=== PATIENT | female | born 1950 | race Caucasian/White ===

== ENCOUNTER 2017-01-01 12:44 | Emergency (ER) | payer MEDICARE, OTHER ==
[~2017-01-01] VITALS: Ht 157.5 cm; Wt 51.3 kg
[~2017-01-01 12:44] MED LIST: B-122500 MCG SL; NORCO 5-325 TA1 EACH PO; ZOLOFT100 MG PO
[2017-01-01] MEDS ORDERED: LOPERAMIDE2 MG PO (13:03)
[2017-01-01] MEDS ORDERED: LORAZEPAM1 MG PO (13:03)
[2017-05-06] MEDS ORDERED: NORCO 5-325 TA1 EACH PO (13:59)
== END 2017-01-01 15:12 | disposition home or self-care (01) ==
LOC: ED 12:44
DX: F41.9 Anxiety disorder, unspecified (principal); Z74.1 Need for assistance with personal care; C19 Malignant neoplasm of rectosigmoid junction; F17.200 Nicotine dependence, unspecified, uncomplicated; Z79.899 Other long term (current) drug therapy
CPT/HCPCS: 74020; 85025; 99283

== ENCOUNTER 2017-01-26 09:18 | Inpatient (IN) | payer MEDICARE, OTHER ==
[~2017-01-26] VITALS: Ht 157.5 cm; Wt 47.2 kg
--- NOTE | ~2017-01-26 | DS ---
[facility] [address], [place] [address] Draft DATE OF DISCHARGE: 01/29/17 ADMISSION DIAGNOSES Nausea and vomiting. Possible small bowel obstruction, status post history of subtotal colectomy, and history of anorectal carcinoma. DISCHARGE DIAGNOSES Nausea and vomiting. Possible small bowel obstruction, status post history of subtotal colectomy, and history of anorectal carcinoma. DISCHARGE MEDICATIONS She is to take all of the medicines she took before, which I am told is antidepressant plus the [id number] stuff that she normally takes if she needs it. OPERATIONS: None. H and P was dictated by Dr. Putnam. Briefly, this is a lady who is well known to him and came in with this problem. He put her in and basically took care of her with medical management and with medical management she seems to have resolved this problem, i t could have just been a gastroenteritis type deal, but it also could have been partial bowel obstruction due to adhesions. Anyhow, she got better, he had her on TPN in case she did not get better and started her on diet. She is tolerating the diet, has exellent ileostomy output. She is afebrile and basically was managed medically by Dr. Putnam. He called me last evening and asked me to discharge her this morning if she continues to do okay and she seems to be doing fine. I sat down, had a talk with her about chewing her food well, possibly staying on soups and mush for a couple of weeks. See Dr. Putnam in 7-10 days for follow-up , should she have any problems that sounds like the same thing that got her in here, she should go right back to the emergency room. All in all, I think she is doing okay. She still has issues with her anorectum, that will have to be managed as her physician sees fit. We wish everybody luck with the care of this nice lady who has had some many major medical issues recently. MD DORA Felix/Brant PATIENT NAME: OLAMIDE DUFFY DISCHARGE SUMMARY DATE OF : 50 PHYSICIAN: PATRICIA DELAROSA MD REPORT #: [id number] REPORT IS CONFIDENTIAL AND NOT TO BE RELEASED WITHOUT AUTHORIZATION [address] [place] [address] Draft /[id number] cc: MD Ascencion Dangelo, PATIENT NAME: OLAMIDE DUFFY DISCHARGE SUMMARY DATE OF : 50 PHYSICIAN: PATRICIA DELAROSA MD REPORT #: [id number] REPORT IS CONFIDENTIAL AND NOT TO BE RELEASED WITHOUT AUTHORIZATION
[~2017-01-26 09:18] MED LIST changes: +LOPERAMIDE2 MG PO; +LORAZEPAM1 MG PO
--- NOTE | 2017-01-26 13:45 | NUR ---
PATIENT TO MED-SURG FLOOR VIA STRETCHER. TRANSFER TO HOSPITAL BED BY SELF. PATIENT IS WEAK DUE TO NAUSEA AND VOMITING FOR SEVERAL DAYS. PATIENT ORIENTE TO ROOM. ADMISSION ASSESSMENT DONE. LUNGS CLEAR, HYPOACTIVE BOWEL TONES. SKIN DRY AND PALE, POOR TURGOR. DRY MOUNTH. ILEOSTOMY ON THE RIGHT MID QUADRANT AND COLOSTOMY ON THE LEFT MID QUADRANT. PATIENT HAS A PORT A CATH ON THE RIGHT CHEST AND PERIPHERAL IV ON THE RIGHT FORARM, THAT FLUSHED WELL.
--- NOTE | 2017-01-26 13:55 | NUR ---
DR AGUILERA IN TO ROOM TO SEE AND EVALUATE PATIENT. DISCUSSING PLAN OF CARE.
--- NOTE | 2017-01-26 14:19 | NUR ---
PORT A CATH ACCESSED PER DR AGUILERA ORDER. THIS RN ACCESSED PORT WITH THE ASSISTANCE OF CABLE SPLICER APPRENTICE YURY. GOOD BLOOD RETURN AND PATIENT TOLERATED PROCEDURE WELL.
--- NOTE | 2017-01-26 15:55 | NUR ---
MED REC COMPLETE WITH PATIENT REFILL HISTORY.
--- NOTE | 2017-01-26 17:09 | NUR ---
PATIENT REPORTED PAIN, PATIENT WAS MEDICATED WITH DILAUDID BY BRITTANY PRICE. PATIENT RESTING IN BED AT THIS TIME.
--- NOTE | 2017-01-26 18:13 | NUR ---
PATIENT ADMITTED FROM ED THIS PM. REPORTED ABD PAIN. PATIENT WAS MEDICATED ONCE WITH DILAUDID FOR THIS SHIFT. PATIENT IS NPO AT THIS TIME. TPN @ 83.7ML/HR AND LIPIDS @ 20.3ML/HR. PORT ON THE RIGHT UPPER CHEST, ACCESSED, GOOD BLOOD RETURN. PATIENT HAD RIGHT ILEOSTOMY AND A LEFT COLOSTOMY. STOMA IN BOTH OSTOMY PINK, MOIST AND SKIN INTACT. PATIENT HAD GENERALIZED WEAKNESS. BLOOD SUGAR CHECK Q 12. VOID Q/S.
--- NOTE | 2017-01-26 18:28 | NUR ---
PATIENT RESTING IN BED WATCHING TV. CALL BUTTON IN REACH. NO OTHER NEEDS AT THIS TIME.
--- NOTE | 2017-01-26 20:00 | NUR ---
RECEIVED REPORT AT 1900. FOUND PT IN BED COMPLAINING OF PAIN AND NAUSEA. DAY RN GAVE PRN PAIN MEDS AND ZORFRAN. I ASSISTED PT TO BATHROOM. PT IS BACK IN BED AT THIS TIME.
--- NOTE | 2017-01-26 22:05 | NUR ---
ALL LOBES ARE CLEAR. LUQ HAS BOWEL TONES. ILLEOSTOMY BAG HAS GAS IN IT. PT AT TIMES IS BELCHING. V/S ARE WDL. PT DENIES N/V.
--- NOTE | 2017-01-27 00:37 | NUR ---
ASSISTED PT TO BATHROOM. THIS IS THE SECOND TIME PT ONLY HAD 50ML URINE OUT. WILL CONTINUE TO MONITOR AND IF THIS CONTINUES I WILL LET DAY SHIFT KNOW TO GET A URINE SAMPLE. PT IS BACK IN BED RESTING. PAIN NOW IS A 3
--- NOTE | 2017-01-27 03:17 | NUR ---
ASSISTED PT TO BATHROOM. PAIN IS WELL CONTROLLED. PT DENIES PAIN AND N/V. URINE OUTPUT IS MUCH BETTER.
--- NOTE | 2017-01-27 05:21 | NUR ---
PT OVERALL HAD AN UNEVENTFUL NIGHT. LIPIDS ARE FINISHED. TPN IS STILL RUNNING. V/S ARE WDL SO FAR, RUQ HAS BOWEL TONES, ILLEOSTOMY PUTS OUT GREEN STOOL AND GAS. PAIN IS WELL CONTROLLED WITH PRN PAIN MEDS. PT HAS DENIED N/V ALL SHIFT. PT SEEMS OVERALL STRONGER.
--- NOTE | 2017-01-27 07:15 | NUR ---
BEDSIDE REPORT RECEIVED FROM BRITTANY SMITH. PT SLEEPING, SPO2 99%, HR 74. TPN INFUSING AT 83.7 ML/HR. WILL CONTINUE TO MONITOR.
--- NOTE | 2017-01-27 07:56 | NUR ---
DR. AGUILERA IN PT ROOM, ADVANCED PT TO FULL LIQUID DIET. PT HAD 225 GREEN STOOL OUT OF ILEOSTOMY BAG. MORNING ASSESSMENT COMPLETE, PT LUNGS CLEAR WITH OCCASIONAL EXPIRATORY WHEEZE IN ALL QUADRANTS. PT HAS ACTIVE BOWEL TONES X4. NO NAUSEA OR PAIN REPORTED AT THIS TIME. PT BACK IN BED, BREAKFAST ORDERED, CALL LIGHT NEXT TO PT. WILL CONTINUE TO MONITOR.
--- NOTE | 2017-01-27 09:53 | NUR ---
DIETARY PRESENT IN ROOM WITH PT. PT RECEPTIVE OF INFORMATION REGARDING CALORIE DENSE FOODS. PT HAS TOLERATED FULL LIQUID DIET, REPORTING NO NAUSEA, NO EMESIS. PT STATING THAT SHE IS "READY FOR FISH, SALMON". WILL CONTINUE TO MONITOR.
--- NOTE | 2017-01-27 11:46 | NUR ---
IV NS INFUSING AT 15ML/HR AT PERIPHERAL SITE, LINE PATENT. TPN INFUSING AT 83.7 ML/HR IN PORT. PT ATE SOUP FROM LUNCH TRAY, TOLERATING FULL LIQUIDS WELL. PT STATING NO NAUSEA OR PAIN AT THIS TIME. CALL LIGHT NEXT TO PT WILL CONTINUE TO MONITOR.
--- NOTE | 2017-01-27 12:12 | NUR ---
PT GRIMACING, ASKED IF SHE WAS HAVING PAIN. PT NOW RATES PAIN 8/10 IN ABDOMEN, "FEELS LIKE THERE IS PRESSURE". ADMINSTERED 1 MG PRN DILAUDID IV. NS INFUSING 15 ML/HR. CONTINUOUS PULSE OX PUT BACK ON PT. PT REQUESTING TO REST BEFORE CT. CALL LIGHT NEXT TO PT.
--- NOTE | 2017-01-27 13:47 | CONS ---
[facility] [address], [place] [address] Signed DATE OF CONSULTATION: 01/26/17 REFERRING PHYSICIAN: Dr. Rickey Carpenter. CHIEF COMPLAINT: Nausea, vomiting, dehydration. 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 In general, she has done well afterwards. She has undergone chemo and radiation therapy. The plan was for her to consider abdominoperineal resection possibly based on physical exam and follow-up x-rays. In the meantime, she continues to live by herself, although she has a sister here in town. Olamide is often confused and obviously emotional. She has lost a significant amount of weight and told me today she has been eating ice-cream at home. She told me she was not sure what she was allowed to eat. She has been told previously that she is welcome to eat whatever she wants. The last 2 days, she has had nausea, vomiting and dehydration. She has had significant weight loss over the last several weeks. She came to the emergency room for evaluation. Her abdominal exam is not particularly concern i francisco. She did have gas in her bag in the emergency room and it was so much that it came apart and had to be replaced. Nevertheless, her laboratory work does show her sodium is low at 123 with an elevated BUN at 38 and her urine specific gravity is headed up a little bit. White count is normal and her albumin was normal. She then had abdominal x-rays done and there is a 5 cm dilated small bowel on the left side of her abdomen with some air-fluid levels. 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 In the meantime, she has come down to the medical floor and she now has liquid brown stool in her ileostomy bag. PAST MEDICAL HISTORY Rectal cancer in August 2016 status post neoadjuvant chemotherapy and radiation therapy. 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 SOCIAL HISTORY He does not smoke or drink. She lives by herself. She is unemployed currently. Her sister is Kelley Prieto at [phone]. She prefers [facility]. Dr. Ascencion Traylor is her primary care provider. FAMILY HISTORY: Not reviewed today. REVIEW OF SYSTEMS Electronically Signed By: LARRY AGUILERA MD 01/27/17 1347 PATIENT NAME: OLAMIDE DUFFY CONSULTATION DATE OF : 50 PHYSICIAN: LARRY AGUILERA MD REPORT #: [id number] REPORT IS CONFIDENTIAL AND NOT TO BE RELEASED WITHOUT AUTHORIZATION [facility] [address], [place] [address] Signed Reviewed 10 systems with Olamide and I can tell she has lost quite a bit of weight since I have seen her last. ALLERGIES: None. MEDICATIONS: Vitamin B12 and Zoloft. PHYSICAL EXAMINATION VITAL SIGNS: Her blood pressure is 119/70, heart rate 66, her respiratory rate is 16, temperature is 97.4. She is 100% on room air. She is 5 feet 2 inches, at 42 kg. GENERAL: Olamide is a 66-year-old female, lying supine in her hospital bed. She is obviously cachectic. She is always somewhat emotional and tearful, although overall she has done pretty well today. LUNGS: Clear to auscultation bilaterally. HEART: Regular rate and rhythm. I can feel the port on her right chest wall. ABDOMEN: Soft, flat and nontender. She has a mucous fistula bag on the left lower quadrant and in the right lower quadrant she has ileostomy. There is liquid brown stool in the bag. LABORATORY DATA Her white blood count 7.9, hemoglobin 13, neutrophils 46. Her sodium is low at 123, BUN 38, creatinine 1.03. Urinalysis showed some protein and glucose. Albumin is 3.8. Liver function tests are negative. RADIOGRAPHIC STUDIES The abdominal x-ray are reviewed along with the report. She has a 5-cm dilated small bowel on the left side of her abdomen with an air-fluid level. ASSESSMENT AND PLAN Olamide is a 66-year-old female, who presents as above. She had a total abdominal colectomy with a mucous fistula and an ileostomy back in August of this year. She has now completed her neoadjuvant chemo and radiation therapy. Unfortunately, in the last 2 days, she has had quite a bit of nausea, vomiting and dehydration. She has lost quite a b it of weight in the last month or two. There is a question whether or not she might have a small bowel obstruction on her abdominal x-rays, although she seems to have air and stool in her ileostomy bag. Her sodium is still low at this point. We are going to go ahead and admit her. We will start some routine TPN and we will see how she does at least overnight. I will recheck her labs in the morning and if things are improving, we will start to reintroduce her diet. In the meantime, we will allow her to have some ice chips and hard candy and gum and we will proceed conservatively. She has expressed understanding and agrees with the above plan. Electronically Signed By: LARRY AGUILERA MD 01/27/17 1347 PATIENT NAME: OLAMIDE DUFFY CONSULTATION DATE OF : 50 PHYSICIAN: LARRY AGUILERA MD REPORT #: [id number] REPORT IS CONFIDENTIAL AND NOT TO BE RELEASED WITHOUT AUTHORIZATION [address] [place], [place] [address] Signed MD LINH Dangelo/Brant /[id number] cc: Ascencion Traylor DO Electronically Signed By: LARRY AGUILERA MD 01/27/17 1347 PATIENT NAME: OLAMIDE DUFFY CONSULTATION DATE OF : 50 PHYSICIAN: LARRY AGUILERA MD REPORT #: [id number] REPORT IS CONFIDENTIAL AND NOT TO BE RELEASED WITHOUT AUTHORIZATION
--- NOTE | 2017-01-27 13:54 | NUR ---
MED/SURG STAFF ASKED ME TO NOT DISTURB PT. SHE WANTED TO SLEEP. WILL HONOR THIS REQUEST
--- NOTE | 2017-01-27 13:54 | NUR ---
EMPTIED PT'S ILEOSTOMY BAG, 425 ML OUT OF BROWN LIQUID STOOL, GAS PRESENT IN BAG. PT UP TO TOILET, 400 ML URINE OUT. PT STATING PAIN 2 OR 3/10, PRESSURE IN ABDOMEN. LINENS AND GOWN CHANGED. PT HAS CALL LIGHT IN REACH. WILL CONTINUE TO MONITOR.
--- NOTE | 2017-01-27 15:40 | NUR ---
PT ASSESSMENT COMPLETE. PT STATING "HAVE A LOT GOING ON IN MY HEAD". PT UPSET ABOUT LACK OF SUPPORT AT HOME, FROM SISTER. PT'S BOWEL TONES ACTIVE X4. ILEOSTOMY CONTINUES TO DRAIN BROWN LIQUID STOOL, PT STATING NO NAUSEA, NO PAIN AT THIS TIME, ABDOMEN NON-TENDER WITH PALPATION. PTS LUNGS CLEAR IN ALL LOBES. SCD'S IN PLACE. CALL LIGHT NEXT TO PT. BROUGHT PT SOME SALTINE CRACKERS BY REQUEST. WILL CONTINUE TO MONITOR.
--- NOTE | 2017-01-27 16:12 | NUR ---
PT AND I TALKED ABOUT HAVING AGING AND PEOPLE WITH DISABILITIES COME EVALUATE HER SHE ONLY MAKES $520/MONTH AND HAS A SMALL AMOUNT OF "DWINDLING" MONEY IN THE BANK. PT STATES SHE DOESN'T FEEL UP TO TALKING WITH THEM NOW. 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 SHE BECAME TEARFUL STATING THAT SHE HAD TAKEN CARE OF HERSELF ALL HER LIFE AND NOW THIS. PT CONTINUED STATING SHE WAS DEPRESSED AND DIDN'T WANT PEOPLE TO LINOLEUM LAYER HER FOR ASKING FOR HELP. TOLD HER WE WOULD TALK LATER AND SHE STATED THAT SHE FELT SOME BETTER AFTER TALKING AND SOMEONE CARING.
--- NOTE | 2017-01-27 17:06 | NUR ---
PT ILEOSTOMY EMPTIED X2 THIS SHIFT. PT AMBULATED WITH PT. HAD SHOWER TODAY. PT COMPLAINED OF 8/10 PAIN ONCE THIS SHIFT, DILAUDID 1 MG IV PRN ADMINISTERED X1. PT ILEOSTOMY DRAINING BROWN STOOL, BOWEL TONES ACTIVE ALL QUADRANTS, NON-TENDER W PALPATION. LUNGS CLEAR, PT HAS USED IS APPROPRIATELY. PT EMOTIONAL REGARDING SUPPORT SYSTEM AT HOME, MET Nava FITZGERALD REGARDING DISCHARGE SUPPORT.
--- NOTE | 2017-01-27 17:33 | NUR ---
ANSWERED PT CALL LIGHT, ASSISTED PT TO ADJUST VOLUME ON TV. GIVEN BREAK FROM SCD'S TURNED OFF MACHINE BEEPING. PT CONTINUES TO REPORT NO PAIN IN ABDOMEN, STATES THE DILAUDID HAS HELPED. CALL LIGHT NEXT TO PT, TPN AND IV FLUIDS INFUSING. PT STATES NO NAUSEA AFTER FULL LIQUID DINNER, WILL CONTINUE TO MONITOR.
--- NOTE | 2017-01-27 17:35 | NUR ---
PT HAS RECEIVED DILAUDID 1 MG X1 PRN IV THIS SHIFT FOR 8/10 PAIN. ADVANCED TO FULL LIQUID DIET PER DR. AGUILERA, PT HAS TOLERATED WELL, NO NAUSEA. HAS HAD SIGNIFICANT OUTPUT OF BROWN STOOL AND GAS FROM ILEOSTOMY THIS SHIFT. PT EMOTIONAL REGARDING SUPPORT AT HOME, VISITED WITH LIA REGARDING CARE AFTER DISCHARGE. PT WORKED WITH PT THIS SHIFT, AMBULATED WELL WITH STEADY GAIT TO RESTROOM MULTIPLE TIMES.
--- NOTE | 2017-01-27 19:15 | NUR ---
IN TO SEE PT, REPORT RECV'D FROM SULLY SOTO. PT AWAKE WATCHING TV. TPN AND IVF INFUSING. PT DENIES PAIN OR NAUSEA. ILEOSTOMY AND COLOSTOMY SITES WNL, DRAINING WELL. NO FURTHER NEEDS AT THIS TIME. CALL LIGHT WITH IN REACH.
--- NOTE | 2017-01-27 19:37 | NUR ---
PATIENT WANTED WARM BLANKET.
--- NOTE | 2017-01-27 20:50 | NUR ---
IN TO GIVE PM MEDICATIONS, PT AWAKE WATCHING TV. DENIES PAIN. WHILE IN THE ROOM PT DEVELOPES NAUSEA, PRN ZOFRAN GIVEN. HEPARIN 2.5 MG GIVEN SUB-Q PER ORDER. ILEOSTOMY EMPTIED, PT STATES SHE HAS HAD INCREASED GAS AND OUTPUT TODAY. NO FURTHER NEEDS AT THIS TIME. CALL LIGHT IN REACH.
--- NOTE | 2017-01-27 22:55 | NUR ---
IN TO CHECK ON PT, PT APPEARS TO BE SLEEPING. NO APPARENT DISTRESS NOTED. RR EVEN AND UNLABORED. CALL LIGHT IN REACH.
--- NOTE | 2017-01-28 00:15 | NUR ---
IN TO CHECK ON PT, PT APPEARS TO BE SLEEPING. NO APPARENT DISTRESS NOTED. IVF AND TPN INFUSING. CALL LIGHT IN REACH.
--- NOTE | 2017-01-28 02:55 | NUR ---
IN TO CHECK ON PT, PT APPEARS TO BE SLEEPING. RR EVEN AT 16 AND UNLABORED. IVF AND TPN INFUSING. IV PUMP CLEARED. NO APPARENT DISTRESS NOTED. CALL LIGHT IN REACH.
--- NOTE | 2017-01-28 05:15 | NUR ---
PT HAS HAD UNEVENTFUL SHIFT, RESTED WELL. DENIES PAIN DURING SHIFT, ONE BOUT OF NAUSEA, ZOFRAN GIVEN. FULL LIQUID DIET, HAS TOLERATED WELL. PT HAS HAD INCREASED OUTPUT OF BROWN STOOL AND GAS FROM ILEOSTOMY. UP TO BATHROOM WITH 1 PERSON STANDBY ASSIST. IVF AND TPN INFUSING. CBG Q12 HRS. PT PLEASANT, USES CALL LIGHT APPROPRIATELY. EMOTIONALLY PT HAS BEEN STABLE THROUGH OUT SHIFT.
--- NOTE | 2017-01-28 05:18 | NUR ---
PT HAS RESTED WELL THROUGH OUT THE SHIFT. NORCO GIVEN PO X2 FOR PAIN. MINIMAL BUCKLER AND LACER USE FOR BREAKTHROUGH PAIN NOTED. DENIES NAUSEA. PT ON 1999 ZEINAB ADA DIET, HAS TOLERATED FLUIDS WELL DURING SHIFT. 4 LAP SITE ARE D/I. DIME SIZED AREA OF DRAINAGE ON THE R LATERAL ABD SITE. PT ON O2 @ 1.5 L/HR, PULSE OX IN PLACE. PT UP WITH 1 PERSON STANDBY ASSIST, TOLERATES WELL.
--- NOTE | 2017-01-28 07:20 | NUR ---
BEDSIDE REPORT RECEIVED FROM BRITTANY MANLEY. PT AWAKE IN BED EATING BREAKFAST. PT STATING THAT SHE IS NOT IN ANY PAIN AT THIS TIME, NO NAUSEA. PT HAS CALL LIGHT IN REACH. TPN INFUSING AT 83.7 ML/HR, NS AT 15 MLS/HR, IV SITE WNL, SCD'S ON. WILL CONTINUE TO MONITOR.
--- NOTE | 2017-01-28 08:55 | NUR ---
MORNING ASSESSMENT COMPLETE. PT HAS ACTIVE BOWEL TONES X4 QUADRANTS, NO PAIN WITH PALPATION IN ABDOMEN. PT STATES NO NAUSEA. LUNGS CLEAR THROUGHOUT. PT HAS SCDS IN PLACE. TPN INFUSING AT 41.8 ML/HR. EDUCATED PT ON CHANGE IN DIET, FLUIDS. WILL CONTINUE TO MONITOR, PT HAS CALL LIGHT IN REACH.
--- NOTE | 2017-01-28 11:31 | NUR ---
DRAINED PT'S ILEOSTOMY, 125 ML BROWN LIQUID AND GAS OUT. PT NOT COMPLAINING OF PAIN OR NAUSEA. PT LUNCH NOW IN ROOM. PT HAS APPETITE, EXCITED TO EAT. DIETARY BROUGHT PT COUPONS FOR ENSURE DRINKS. CALL LIGHT WITH PT WILL CONTINUE TO MONITOR.
--- NOTE | 2017-01-28 12:55 | NUR ---
ASSISTED PT TO RESTROOM. PT COMPLETED ORAL CARE AT SINK. PT AMBULATED WELL, STEADY. PT STATES THAT SHE HAS NO PAIN OR NAUSEA AT THIS TIME. TPN, IV FLUIDS INFUSING. PT ABLE TO EAT 75% OF LUNCH. CALL LIGHT IN REACH.
--- NOTE | 2017-01-28 14:08 | NUR ---
PT USED BATHROOM AND RETURNED TO BED AND IS NOW RESTING SAFELY WITH CALL LIGHT IN REACH. PT DID NOT NEED ANYTHING ELSE AT THE MOMENT
--- NOTE | 2017-01-28 14:39 | NUR ---
PHONE CALL TO DR. AGUILERA. TELEPHONE ORDER RECEIVED TO D/C LIPIDS, STATING THAT BY D/C'ING TPN, LIPIDS ARE INCLUDED.
--- NOTE | 2017-01-28 15:27 | NUR ---
TPN D/C'D, PICC LINE FLUSHED W 20 NS, HEPARIN FLUSH. IV 1/2 NS, D5, 20MEQK INFUSING AT 75 TO PERIPHERAL IV SITE. ASSISTED PT TO RESTROOM FOR URINATION, 250 MLS OUT. EMPTIED ILEOSTOMY BAG 125 MLS LIQUID RED AND BROWN COLORED DRAINAGE. PT ASSESSMENT COMPLETE. NO PAIN REPORTED, NO NAUSEA. LUNGS CLEAR, BOWEL TONES ACTIVE X4 QUADRANTS, NON-TENDER TO PALPATION. ASSISTED PT TO ORDER DINNER. CALL LIGHT IN REACH, WILL CONTINUE TO MONITOR.
--- NOTE | 2017-01-28 15:35 | NUR ---
BROUGHT PT SNACK OF PEANUT BUTTER AND JACOB CRACKERS AND CHOCOLATE MILK TO DRINK. PT STATING THAT IT TASTES GOOD. TURNED PT TO RIGHT SIDE SPINE IS REDDENED. EDUCATED PT ON TURNING. WILL CONTINUE TO MONITOR.
--- NOTE | 2017-01-28 17:48 | NUR ---
ASSISTED PT TO RESTROOM. PT AMBULATED WITH STEADY GAIT. PT ATE 100% OF REGULAR DIET DINNER. JAZMYNE SMITH IN ROOM TO ASSIST W ILEOSTOMY DRAINAGE. WILL CONTINUE TO MONITOR.
--- NOTE | 2017-01-28 17:52 | NUR ---
PT USED BATHROOM AND WAS HELPED WITH EMPTING ILEOSTOMY. PT THEN RETURNED TO BED NOW RESTING SAFELY WITH CALL LIGHT IN REACH. PT ASKED FOR MORE ICE WATER
--- NOTE | 2017-01-28 19:15 | NUR ---
IN TO SEE PT, REPORT RECV'D FROM SULLY SOTO. PT AWAKE WATCHING TV. PT STATES SHE HAD A GOOD DAY. TPN DC'D. PT STATES SHE THINKS SHE MAY GO HOME TOMORROW AND IS OKAY WITH THAT. NO FURTHER NEEDS AT THIS TIME. CALL LIGHT IN REACH.
--- NOTE | 2017-01-28 20:03 | NUR ---
PATIENT CALLED, ASSISTED HER TO THE BATHROOM. PATIENT ASKED FOR PEANUT BUTTER AND JACOB CRACKERS. PATIENT IS BACK ON BED.
--- NOTE | 2017-01-28 21:15 | NUR ---
IN TO CHECK ON PT, PT AWAKE WATCHING TV. PERIPERAL IV SITE REMOVED BY JAZIEL SOTO, PT IS HAPPY. DENIES PAIN AND NAUSEA. IVF INFUSING. NO NEEDS AT THIS TIME. CALL LIGHT IN PLACE.
--- NOTE | 2017-01-29 00:30 | NUR ---
IN TO CHECK ON PT, PT AWAKENS TO NOISE. PT DENIES PAIN OR NAUSEA. NO NEEDS AT THIS TIME. WATER AT BEDSIDE AND CALL LIGHT IN PLACE.
--- NOTE | 2017-01-29 02:43 | NUR ---
IN TO CHECK ON PT, PT SLEEPING ON L SIDE. NO APPARENT DISTRESS NOTED. IVF INFUSING THROUGH PORT. RR EVEN AT 14 AND UNLABORED. CALL LIGHT IN REACH.
--- NOTE | 2017-01-29 04:50 | NUR ---
IN TO CHECK ON PT, PT APPEARS TO BE SLEEPING ON L SIDE. NO APPARENT DISTRESS NOTED. CALL LIGHT WITH IN REACH.
--- NOTE | 2017-01-29 05:54 | NUR ---
PT HAS HAD UNEVENTFUL SHIFT, SLEPT WELL. IV FLUID D5 NS + 20 K @ 75 MLS INFUSING INTO PORT. PT ADVANCED TO REGULAR DIET. DENIES PAIN AND NAUSEA DURING SHIFT. DECREASED GAS IN ILEOSTOMY. PT 1 PERSON STANDBY ASSIST TO BATHROOM.
--- NOTE | 2017-01-29 08:08 | NUR ---
patient was sitting in the dark, she says she likes it that way, i gave her a warm wash cloth, and she said she will wash her face after she eats breakfast.
--- NOTE | 2017-01-29 08:45 | NUR ---
PT REQUESTED TO HAVE OSTOMY DRESSING COMPLETELY CHANGED BEFORE DISCHARGE. THIS RN NOTED THAT DRESSING WAS NOT SECURE AND STOOL WAS LEAKING OUT ONTO SKIN. OLD BAG REMOVED. SITE CLEANED AND PREPPED THOROUGHLY, NEW DRESSING AND BAG APPLIED, PT JENIFFER WELL.
[2017-05-06] MEDS ORDERED: NORCO 5-325 TA1 EACH PO (13:59)
== END 2017-01-29 09:55 | disposition home or self-care (01) | DRG 390 ==
LOC: ED 09:18 → MS 12:49
PROVIDERS: ADMIT Colon & Rectal Surgery
PROC: 3E0234Z Introduction of Serum, Toxoid and Vaccine into Muscle, Percutaneous Approach (ICD-10-PCS; principal; 2017-01-27)
DX: K56.60 Unspecified intestinal obstruction (principal); Z23 Encounter for immunization; Z85.048 Personal history of other malignant neoplasm of rectum, rectosigmoid junction, and anus; Z90.49 Acquired absence of other specified parts of digestive tract; Z92.21 Personal history of antineoplastic chemotherapy; Z92.3 Personal history of irradiation; Z85.038 Personal history of other malignant neoplasm of large intestine; Z93.2 Ileostomy status; Z93.3 Colostomy status
CPT/HCPCS: 36415; 74020; 80048; 80053; 80061; 81001; 83735; 84100; 84134; 85025; 85610; 85730; 90662; 94762; 97116; 97161; 97530; G0008; J1170; J1644; J2405; J3475; J3480; J7030; J7060

== ENCOUNTER 2017-05-04 07:35 | Day surgery (SDC) | payer MEDICARE, OTHER ==
[~2017-05-04] VITALS: Ht 157.5 cm; Wt 54.9 kg
[2017-05-04] MEDS ORDERED: VITAMIN B-1000 MCG/1 SUB-Q (07:50)
--- NOTE | 2017-05-05 09:29 | OR ---
[facility] [address], [place] [address] Signed DATE OF OPERATION: 05/04/2017 SURGEON: Larry Putnam MD PREOPERATIVE DIAGNOSES: 1. Right internal jugular Geoe-G-Xbtpzsql. 2. Personal history of squamous cell carcinoma of the anus/rectum. 3. Status post neoadjuvant chemotherapy and radiation therapy. POSTOPERATIVE DIAGNOSES: 1. Right internal jugular Arku-I-Tiukeimq. 2. Personal history of squamous cell carcinoma of the anus/rectum. 3. Status post neoadjuvant chemotherapy and radiation therapy. PROCEDURE: Removal of right internal jugular Jlcq-K-Jdcvswbf. ESTIMATED BLOOD LOSS: None. INDICATIONS: Nisha is a 66-year-old female, who came in July of 2016 to our emergency room. She had an obstructing rectal tumor with ischemic bowel. 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 She has been through her chemo and radiation therapy. She has a right internal jugular Aeqp-T-Bvbdfnsd that she now wants removed. She has been seeing her colorectal surgeon and because her sphincter tone is very poor, there is less enthusiasm to put her through major pelvic surgery for reversal. In the meantime, she stopped by my office here locally and asked for me to remove the Xoho-R-Cngayufh since she no longer needs her chemotherapy. I explained the Nisha the nature of the removal of the Lgak-G-Eavqgfny. She understands expected intraop and postop course. There is risk including, but not limited to, bleeding, infection, scarring, change in contour of the skin as well as air embolization. There is also risk for fracture and embolization of the catheter requiring retrieval. She has expressed understanding and wished to proceed. PROCEDURE NOTE: Nisha was taken into our operating room and placed in the supine position under monitored anesthesia care. She was given preoperative antibiotics along with subcutaneous heparin. SCDs were utilized. She was then prepped and aped in the usual sterile fashion. Electronically Signed By: LARRY PUTNAM MD 05/05/17 0929 PATIENT NAME: OLAMIDE DUFFY OPERATIVE REPORT DATE OF : 50 PHYSICIAN: LARRY PUTNAM MD REPORT #: [id number] REPORT IS CONFIDENTIAL AND NOT TO BE RELEASED WITHOUT AUTHORIZATION [facility] [address] [place], [place] [address] Signed Local anesthetic was copiously injected around the Stly-H-Kprlelrc hub and along the tract of the catheter up to the right internal jugular vein. After this, her previous incision was opened sharply with a knife and then carried down further with the help of the cautery. We used the cautery and blunt dissection to come around the Hpmf-K-Tjnnlhuy hub including the pseudo capsule. Thus, the entire capsule and all the Prolene sutures were removed. The catheter was quite free and was able to be removed without any resistance whatsoever. We placed a 2-0 Prolene pursestring suture around the exit site of the catheter and as the catheter came out, that was tied down to secure that securely and immediately. After this, the wound was irrigated and suctioned out until clear. We reapproximated the dermis with interrupted 3-0 subcuticular Monocryl sutures. The skin edges were reapproximated with a running 6-0 fast absorbing plain gut suture. Dry gauze and tape were then applied. Nisha was then transferred to her hospital bed and taken into recovery room in stable condition. Larry Putnam MD ALB/MODL /[id number] cc: MD Ascencion Vanessa DO Robert C Quackenbush, MD Electronically Signed By: LARRY PUTNAM MD 05/05/17 0929 PATIENT NAME: OLAMIDE DUFFY OPERATIVE REPORT DATE OF : 50 PHYSICIAN: LARRY PUTNAM MD REPORT #: [id number] REPORT IS CONFIDENTIAL AND NOT TO BE RELEASED WITHOUT AUTHORIZATION
[2017-05-06] MEDS ORDERED: NORCO 5-325 TA1 EACH PO (13:59)
== END 2017-05-04 12:30 | disposition home or self-care (01) ==
LOC: OPS 07:35 → DS 07:35
PROVIDERS: Colon & Rectal Surgery
PROC: 05PY33Z Removal of Infusion Device from Upper Vein, Percutaneous Approach (ICD-10-PCS; 2017-05-04)
PROC: 0JPT0XZ Removal of Tunneled Vascular Access Device from Trunk Subcutaneous Tissue and Fascia, Open Approach (ICD-10-PCS; principal; 2017-05-04 09:00)
DX: Z45.2 Encounter for adjustment and management of vascular access device (principal); K44.9 Diaphragmatic hernia without obstruction or gangrene; F17.210 Nicotine dependence, cigarettes, uncomplicated; Z90.49 Acquired absence of other specified parts of digestive tract; Z98.890 Other specified postprocedural states; Z85.048 Personal history of other malignant neoplasm of rectum, rectosigmoid junction, and anus
CPT/HCPCS: 00532; J0690; J1644; J2704; J3010; J7120

== ENCOUNTER 2017-08-11 21:48 | Observation (INO) | payer MEDICARE, OTHER ==
[~2017-08-11] VITALS: Ht 157.5 cm; Wt 55.8 kg
--- OUTSIDE RECORDS SUMMARY | ~2017-08-11 | XMS | Clinical Summary ---
Demographics + + + | Address | [address] | | | [place] [address] | + + + | Home Phone | | + + + | Preferred Language | Unknown | + + + | Marital Status | Single | + + + | Latter Day Affiliation | Unknown | + + + | Race | White | + + + | Ethnic Group | Not or | + + + Author + + + | Author | [facility] | + + + | Organization | [facility] | + + + | Address | Unknown | + + + | Phone | Unavailable | + + + Support + + +---------+ + | Name | Relationship | Address | Phone | + + +---------+ + | LAURA ROWE | ECON | Unknown | | + + +---------+ + Care Team Providers + +------+ + | Care Glycerin Supervisor Name | Role | Phone | + +------+ + | No Pcp Per Patient | PP | Unavailable | + +------+ + Source Comments SHAKIRA is fully live on both [facility] and [facility] InPatient.[facility] Allergies No Known Allergies Current Medications + + +-------+---------+------+------+-------+ | Prescription | Sig. | Disp. | Refills | Star | End | Statu | | | | | | t | Date | s | | | | | | Date | | | + + +-------+---------+------+------+-------+ | VITAMIN B COMPLEX | Take by mouth. 1 | | | | | Activ | | (B COMPLEX ORAL) | dropperful a day. | | | | | e | + + +-------+---------+------+------+-------+ | | Take 1 tablet by | | | | | Activ | | HYDROcodone-acetamin | mouth twice daily as | | | | | e | | ophen (NORCO) 5-325 | needed. | | | | | | | mg oral tablet | | | | | | | + + +-------+---------+------+------+-------+ Active Problems + + + | Problem | Noted Date | + + + | Anal cancer (HCC) | 10/30/2016 | + + + Family History + + +------+ + | Medical History | Relation | Name | Comments | + + +------+ + | Cancer | Father | | testicular in him, no colorectal cancer in | | | | | family | + + +------+ + | Stroke | Father | | | + + +------+ + | Cancer | Maternal | | doesn't know | | | Grandfath | | | | | er | | | + + +------+ + | Genitourinary () | Mother | | bladder suspension needed | + + +------+ + + +------+--------+ + | Relation | Name | Status | Comments | + +------+--------+ + | Father | | | | + +------+--------+ + | Maternal Grandfather | | | | + +------+--------+ + | Mother | | | | + +------+--------+ + Social History + +-------+ +--------+------+ | Tobacco Use | Types | Packs/Day | Years | Date | | | | | Used | | + +-------+ +--------+------+ | Current Some Day | | 0.1 | 30 | | | Smoker | | | | | + +-------+ +--------+------+ + +---+---+---+ | Smokeless Tobacco: | | | | | Never Used | | | | + +---+---+---+ + + | Comments: trying to quit | + + + + +---------+ + | Alcohol Use | Drinks/We | oz/Week | Comments | | | ek | | | + + +---------+ + | No | | | no longer drinks | + + +---------+ + + + + | Sex Assigned at | Date Recorded | | | | + + + | Not on file | | + + + Last Filed Vital Signs + + + + | Vital Sign | Reading | Time Taken | + + + + | Blood Pressure | - | - | + + + + | Pulse | - | - | + + + + | Temperature | 37 C (98.6 F) | 10/12/2016 11:57 AM PDT | + + + + | Respiratory Rate | 14 | 10/12/2016 11:57 AM PDT | + + + + | Oxygen Saturation | 98% | 10/12/2016 11:57 AM PDT | + + + + | Inhaled Oxygen | - | - | | Concentration | | | + + + + | Weight | 52.1 kg (114 lb 12.8 | 10/12/2016 11:57 AM PDT | | | oz) | | + + + + | Height | - | - | + + + + | Body Mass Index | - | - | + + + + Plan of Treatment + + + + + | Health Maintenance | Due Date | Last Done | Comments | + + + + + | INFLUENZA VACCINE | | | | | (FLU SHOT) | 7 | | | + + + + + Results Not on filefrom Last 3 Months"
--- OUTSIDE RECORDS SUMMARY | ~2017-08-11 | XMS | Clinical Summary ---
Demographics + + + | Address | [address] | | | [place] [address] | + + + | Home Phone | | + + + | Preferred Language | Unknown | + + + | Marital Status | Single | + + + | Mu-Ism Affiliation | Unknown | + + + | Race | White | + + + | Ethnic Group | Not or | + + + Author + + + | Author | [facility] | + + + | Organization | [facility] | + + + | Address | Unknown | + + + | Phone | Unavailable | + + + Support + + +---------+ + | Name | Relationship | Address | Phone | + + +---------+ + | LAURA ROWE | ECON | Unknown | | + + +---------+ + Care Team Providers + +------+ + | Care Sand Molder Name | Role | Phone | + +------+ + | No Pcp Per Patient | PP | Unavailable | + +------+ + Source Comments SHAKIRA is fully live on both [facility] and [facility] InPatient.[facility] Allergies No Known Allergies Current Medications + [...]
--- OUTSIDE RECORDS SUMMARY | ~2017-08-11 | XMS | Clinical Summary ---
Demographics + + + | Address | [address] | | | [place] [address] | + + + | Home Phone | | + + + | Preferred Language | Unknown | + + + | Marital Status | Single | + + + | Hoahaoism Affiliation | Unknown | + + + | Race | White | + + + | Ethnic Group | Not or | + + + Author + + + | Author | [facility] | + + + | Organization | [facility] | + + + | Address | Unknown | + + + | Phone | Unavailable | + + + Support + + +---------+ + | Name | Relationship | Address | Phone | + + +---------+ + | LAURA ROWE | ECON | Unknown | | + + +---------+ + Care Team Providers + +------+ + | Care Print Machine Operator Name | Role | Phone | + +------+ + | No Pcp Per Patient | PP | Unavailable | + +------+ + Source Comments SHAKIRA is fully live on both [facility] and [facility] InPatient.[facility] Allergies No Known Allergies Current [...]
--- OUTSIDE RECORDS SUMMARY | ~2017-08-11 | XMS | Clinical Summary ---
Demographics + + + | Address | [address] | | | [place] [address] | + + + | Home Phone | | + + + | Preferred Language | Unknown | + + + | Marital Status | Single | + + + | Adventist Affiliation | Unknown | + + + | Race | White | + + + | Ethnic Group | Not or | + + + Author + + + | Author | [facility] | + + + | Organization | [facility] | + + + | Address | Unknown | + + + | Phone | Unavailable | + + + Support + + +---------+ + | Name | Relationship | Address | Phone | + + +---------+ + | LAURA ROWE | ECON | Unknown | | + + +---------+ + Care Team Providers + +------+ + | Care Hydroelectric Plant Mechanical Engineer Name | Role | Phone | + +------+ + | No Pcp Per Patient | PP | Unavailable | + +------+ + Source Comments SHAKIRA is fully live on both [facility] and [facility] InPatient.[facility] Allergies No Known Allergies Current Medications + [...]
[~2017-08-11 21:48] MED LIST changes: +B-121000 MC2 SUB-Q; +LORAZEPAM1 MG; +VITAMIN B-1000 MCG/1 SUB-Q; +VITAMIN D2000 UNI1 PO
--- NOTE | 2017-08-12 02:00 | NUR ---
PT ARRIVED AT 0038. RUQ AND LUQ HAVE BOWEL TONES. ILEOSTOMY SO FAR HAS PUT OUT 750ML SO FAR. PT AT THIS TIME DENIED N/V BUT DID NEED 2MG OF MORPHINE FOR PAIN. PT IS WALKING WELL. PT IS ALSO VOIDING WELL SINCE ARRIVAL. PT IS NPO. V/S ARE WDL SO FAR. ALL LOBES ARE CLEAR, NO PERIPHERAL EDEMA NOTED.
--- NOTE | 2017-08-12 04:00 | NUR ---
PT IS SLEEPING.
--- NOTE | 2017-08-12 05:10 | NUR ---
V/S SO FAR SINCE ARRIVAL ARE WDL, PAIN IS WELL CONTROLLED WITH PRN MORPHINE. PT HAS BOWELTONES IN UPPER QUADRANTS, ILEOSTOMY SO FAR HAS PUT OUT 750ML, COLCOSTOMY IS PUTTING OUT SOME WHICH PT STATED NORMAL. PT HAS DENIED N/V SINCE ARRIVAL ON FLOOR. PT IS SLEEPING AT THIS TIME.
--- NOTE | 2017-08-12 07:00 | NUR ---
BEDSIDE HANDOFF REPORT RECEIVED FROM HAND RUG CLEANER RN. PT RESTING IN BED. IV FLUIDS INFUSING AT 125 ML/HR. PT DENIES NEEDS AT THIS TIME.
--- NOTE | 2017-08-12 07:33 | NUR ---
Patient lying in bed. Reports nurse was able to get a urine sample this am. call light in reach, no other needs
--- NOTE | 2017-08-12 08:15 | NUR ---
PT RESTING IN BED. PT DENIES PAIN, STATES SHE IS FEELING A LOT BETTER. PT ON ROOMAIR, LUNG SOUNDS CLEAR. PT DENIES NAUSEA, BOWLE TONES ACTIVE, PT WITH ILEOSTOMY, FLUID IN COLLECTION BAG, APPLIANCE INTACT. OSTOMY APPLIANCE TO LEFT LOWER ABD INTACT. CMS INTACT, WITHOUT EDEMA. IV FLUIDS INFUSING LR AT 125 ML/HR. PT UP WITH SBA. PT DENIES OTHER NEEDS AT THIS TIME. DISCUSSED PLAN OF CARE.
--- NOTE | 2017-08-12 09:20 | NUR ---
PATIENT AWAKE IN BED, BRITTANY WATSON IN TO CHANGE IV BAG. VITALS AND I/OS DONE. PATIENT REPORTS SHE'S VERY THIRSTY, WOULD LOVE SOME COFFEE. STANDBY ASSIST TO BR. PATIENT SET UP FOR AM CARE. WILL CALL WHEN FINISHED. NO OHTER NEEDS.
--- NOTE | 2017-08-12 10:46 | NUR ---
PT RESTING IN BED. PT CONTINUES TO DENY PAIN. IELOSTOMY WITH FLUID IN BAG. PT PROVIDED WITH FRESH MOUTH SWABS. PT DENIES OTHER NEEDS AT THIS TIME.
--- NOTE | 2017-08-12 14:07 | NUR ---
PATIENT UP IN BED, VITALS AND I/OS DONE. PATIENT IS VERY THIRSTY AND WORRIED DR RAMIREZ HAS FORGOTTEN HER. RN WALTER IN TO VISIT WITH PATIENT. PATIENT IS HAVING VERY LITTLE DRAINAGE INTO HER ILEOSTOMY BAG, BUT WHAT DOES COME OUT IS VERY DK GREEN. CALL LIGHT IN REACH
--- NOTE | 2017-08-12 14:15 | NUR ---
PT RESTING IN BED. PT DENIES PAIN. PT ON ROOM AIR, LUNG SOUNDS CLEAR, DENIES SOB. PT DENIES NAUSEA, BOWEL TONES ACTIVE, ILEOSTOMY CONTINUES TO DRAIN, ABD SOFT AND NON TENDED. IV FLUIDS INFUSING D5LR AT 125 ML/HR. PT WITHOUT EDEMA, CMS INTACT. PT DENIES OTHER NEEDS AT THIS TIME.
--- NOTE | 2017-08-12 17:42 | NUR ---
PT WIHTOUT NAUSEA OR ABD PAIN THIS SHIFT, ILEOSTOMY DRAINING FREELY. PT ADVANCED TO LOW FIBER DIET. IV FLUIDS INFUSING LR AT 85 ML/HR. PT ON ROOM AIR, LUNG SOUNDS CLEAR. PT UP WITH SBA. PT SHOULD DISCHARGE TOMORROW IF TOLERATING LOW FIBER.
--- NOTE | 2017-08-12 17:44 | NUR ---
PATIENT SITTING UP IN BED EATING DINNER. TOLERATING WELL. STANDBY ASSIST TO BR. VITALS AND I/OS DONE. PATIENT IS VERY PLEASANT. CALL LIGHT IN REACH
--- NOTE | 2017-08-12 19:25 | NUR ---
BEDSIDE REPORT RECEIVED FROM BRITTANY WATSON. PT AWAKE, SITTING UP IN BED, IVF INFUSING WNL AT 85 ML/HR. PT ON ROOM AIR, DENIES PAIN, DENIES NAUSEA. GIVEN FRESH ICE WATER. NO REQUESTS AT THIS TIME, CALL LIGHT IN REACH.
--- NOTE | 2017-08-12 19:40 | NUR ---
Rounding charge nurse note: watching tv. no c/o pain. IVF infusing w/o problems
--- NOTE | 2017-08-12 23:02 | NUR ---
PT ASSESSMENT COMPLETE, PT AWAKE, ASSISTED TO RESTROOM FOR VOID, PT EMPTIED ILEOSTOMY BAG, ASSISTED PT TO CLEAN UP SPILLED CONTENTS. PT DENIES NAUSEA, DENIES PAIN. 250 ML OUTPUT FROM ILEOSTOMY BAG. GOWN, SOCKS CHANGED. BOWEL TONES ACTIVE X 4, ABD SOFT, NON-TENDER. LUNGS CLEAR THROUGHOUT ALL LOBES. CALL LIGHT IN REACH, PT GIVEN ICE WATER. IV FLUSHES WNL, INFUSING WNL.
--- NOTE | 2017-08-13 01:15 | NUR ---
PT SLEEPING, EYES CLOSED, BREATHING NON-LABORED, VISIBLE CHEST RISE.
--- NOTE | 2017-08-13 03:22 | NUR ---
CHECKED ON PT, PT SLEEPING, EYES CLOSED, EQUAL CHEST RISE BILATERALLY.
--- NOTE | 2017-08-13 05:55 | NUR ---
PT MORNING ASSESSMENT AND VITALS COMPLETE AT THIS TIME, NEW IVF BAG INFUSING WNL. PT DENIES PAIN, DENIES NAUSEA, ILEOSTOMY BAG CONTINUES TO HAVE OUTPUT, BOWEL TONES ACTIVE X 4, ABDOMEN SOFT. PT GIVEN ICE WATER. NO ADDL REQUESTS. CALL LIGHT IN REACH. LIGHTS OFF IN ROOM.
--- NOTE | 2017-08-13 06:32 | NUR ---
PT SLEPT WELL THROUGHOUT SHIFT, UP TO RESTROOM WITH SBA FOR VOIDS, TO EMPTY ILEOSTOMY BAG. CONTINUES TO HAVE OUTPUT FROM ILEOSTOMY BAG. PT HAS DENIED NAUSEA, DENIED PAIN THROUGHOUT SHIFT, ABDOMEN SOFT, BOWEL TONES ACTIVE. TOLERATING LOW FIBER DIET WELL.
--- NOTE | 2017-08-13 07:00 | NUR ---
BEDSIDE HANDOFF REPORT RECEIVED FROM CLASSROOM MONITOR RN. PT RESTING IN BED. PT DENIES PAIN, DENIES NAUSEA. PT DENIES NEEDS AT THIS TIME.
--- NOTE | 2017-08-13 08:57 | NUR ---
patient was in the bathroom, she did her own am care, she refused a shower she said she was going home today and it seemed to make more sense for her to go home and shower than to shower here.
--- NOTE | 2017-08-13 10:52 | EKG ---
[facility] [address] [facility] [place] [address] Signed Normal sinus rhythm Normal ECG When compared with ECG of 27-APR-2017 12:04, No significant change was found Confirmed by ELIZABETH ROBERTS MD ([id number]) on 08/13/2017 10:52:12 AM Electronically Signed By: ELIZABETH ROBERTS MD 08/13/17 1052 PATIENT NAME: OLAMIDE DUFFY Electrocardiogram DATE OF : 50 PHYSICIAN: ELIZABETH ROBERTS MD REPORT #: [id number] REPORT IS CONFIDENTIAL AND NOT TO BE RELEASED WITHOUT AUTHORIZATION
--- NOTE | 2017-08-13 17:13 | DS ---
[facility] [address] [place], [place] [address] Signed ADMISSION DATE: 08/11/2017 DISCHARGE DATE: 08/13/2017 REASON FOR ADMISSION: This 66-year-old white woman has a complex past medical history, which includes subtotal colectomy with ileostomy and mucous fistula of the rectal stump. Her initial problem was anal carcinoma requiring neoadjuvant chemoradiation therapy. She had ischemic colon requiring resection. She was considered not a candidate for reanastomosis due to anorectal dysfunction related to her therapy for the anal carcinoma. She is admitted at this time for bowel obstruction. The patient has had small bowel obstruction in the past, managed by Dr. Scott Putnam, her primary surgeon. Additionally, she had an explantation of a Port-A-Cath in April of 2017 several months ago. She presented approximately midnight the night of admission to hospital with mid abdominal pain, which was considered cramping and constant. She had numerous episodes of vomiting with any attempted oral intake. She had diminishment of ileostomy output. A CT scan was performed, which showed complex intraabdominal anatomy, dilated loops of bowel suggestive of bowel obstruction. She is admitted for further evaluation and care. PERTINENT PHYSICAL EXAMINATION: GENERAL: Pleasant white woman, who is relatively thin overall. ABDOMEN: Showed a marginally functioning ileostomy initially. 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 Abdomen was mildly tender. LABORATORY DATA: Her white count was 13.5, hematocrit 44.7, and platelets 239,000. Electrolytes normal. Creatinine 0.79 and glucose elevated at 166. HOSPITAL COURSE: Her initial diagnosis was with a plain 3-view abdomen x-ray and a CT scan was additionally performed as described and was suggestive of incomplete bowel obstruction. Relatively soon after admission to the hospital with intravenous fluids and so forth, she had prompt recovery of her bowel function with copious output through her ileostomy. She was advanced in her diet and by day of discharge is tolerating a solid diet without any sign of obstruction at this time. She is discharged to home in good condition. DISCHARGE MEDICATIONS: She will resume her usual medications. No new medications to start. She was taking and Electronically Signed By: SRIRAM RAMIREZ MD 08/13/17 1713 PATIENT NAME: OLAMIDE DUFFY DISCHARGE SUMMARY DATE OF : 50 REPORT #: [id number] PHYSICIAN: SRIRAM RAMIREZ MD PCP: ASCENCION OWUSU DO REPORT IS CONFIDENTIAL AND NOT TO BE RELEASED WITHOUT AUTHORIZATION [facility] [address] [place], [place] [address] Signed will continue to take: 1. Sertraline 100 mg 2 tablets p.o. daily. 2. Vitamin D3 2000 units p.o. daily. 3. Vitamin B12 1000 mcg subcutaneously as needed. FOLLOWUP PLAN: She will return to the ongoing care of her usual physician, Dr. Ascencion Owusu. We discussed the issues related to bowel obstruction, avoidance of bingeing of high-fiber food (which she has not done notably). DISCHARGE DIAGNOSES: 1. Incomplete small bowel obstruction with spontaneous resolution. 2. History of subtotal colectomy with ileostomy and mucous fistula of colon. 3. Anal carcinoma, status post neoadjuvant chemoradiation therapy with no evidence of disease, but marked dysfunction of sphincter complex and unlikely candidate for ileorectal anastomosis. MD DEQUAN Cason/MODL /[id number] cc: MD Scott Jasmine MD Arian Kargar, DO Copies: ROBER MARTINEZ MD, ANDREW L MD KARGAR, ARIAN DO ~ Electronically Signed By: SRIRAM RAMIREZ MD 08/13/17 1713 PATIENT NAME: OLAMIDE DUFFY DISCHARGE SUMMARY DATE OF : 50 REPORT #: [id number] PHYSICIAN: SRIRAM RAMIREZ MD PCP: ASCENCION OWUSU DO REPORT IS CONFIDENTIAL AND NOT TO BE RELEASED WITHOUT AUTHORIZATION
--- NOTE | 2017-08-13 17:13 | HP ---
[facility] [address], [place] [address] Signed ADMISSION DATE: 08/11/2017 REASON FOR ADMISSION: Recurrent bowel obstruction. HISTORY OF PRESENT ILLNESS: This 66-year-old white woman has a rather complex past medical history. 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 She completed neoadjuvant chemoradiation therapy and has even had a Port-A-Cath device explanted by Dr. Putnam in April of 2017. She was deemed not a candidate for reanastomosis of the ileum to the rectum due to inadequate sphincter function and likely incontinence for reanastomosis. To my knowledge, she has no evidence of ongoing malignancy. A comprehensive review of her events over time is noted from a medical record note from Dr. Carlo Plascencia of April 06, 2017, which characterizes her malignancy as that of the anal squamous cell carcinoma with poor anal sphincter or anal sphincter mechanism capacity, for which reanastomosis was deemed inadvisable. She presented around midnight to the hospital with mid abdominal pain, which was considered cramping and constant. She had numerous episodes of vomiting with any attempted oral intake. She had a similar such episode in January of 2017, which resolved with nonoperative methods. She had a central abdominal pain with all of this. I was advised of this situation by Dr. Berkowitz and admitted the patient to my service for further evaluation of probable bowel obstruction. She was found in the emergency room to have elevated white count of 13.5 with a hematocrit of 44.7, platelets 239,000. Electrolytes normal with creatinine of 0.79. Liver enzymes were normal. Glucose was elevated at 166. The plain three-view abdomen showed a dilated loop of small bowel in the left upper quadrant. I discussed this situation with Dr. Berkowitz on the phone about midnight and did recommend a CT scan be obtained to assess for volvulus or other more ominous causes of obstructive process. The CT scan was performed. The interpretation of the CT scan was reviewed with Dr. Miller, which was unfortunately uninformed as to her actual anatomy by the interpreting radiologist initially, and the original interpretation bears little resemblance to her actual Electronically Signed By: SRIRAM RAMIREZ MD 08/13/17 1713 PATIENT NAME: OLAMIDE DUFFY HISTORY AND PHYSICAL DATE OF : 50 REPORT #: [id number] PHYSICIAN: SRIRAM RAMIREZ MD PCP: JOHN OWUSU DO REPORT IS CONFIDENTIAL AND NOT TO BE RELEASED WITHOUT AUTHORIZATION [facility] [address], [place] [address] Signed situation, unfortunately. It is notable that following the CT scan, upon delivery to the regular nursing floor, she then had prompt output from her ileostomy in copious amounts, and essentially clinical resolution of the obstruction. She has had no further nausea or vomiting. No abdominal pain, and the ostomy is now working well. The mucous fistula as before is putting out no mucus and has no particular issues. The patient would like a cup of coffee. SOCIAL HISTORY: Her social history is such that she lives alone in [place]. She has small animals that she wants to get back to reasonably soon. PHYSICAL EXAMINATION: GENERAL: A relatively thin white woman who looks to be in chronically debilitated health overall. She is alert and oriented however. She is pleasant, and appropriate. Trachea is midline. Mucous membranes are moist. CHEST: Clear. HEART: Regular without murmur. ABDOMEN: Nondistended. There is a midline incision, which is well healed. I detect no hernia. There is a mucous fistula with ostomy bag in the left lower quadrant and an ileostomy with a fair amount of fluid in the right lower quadrant. EXTREMITIES: Show no clubbing, cyanosis, or edema. LABORATORY DATA: At admission showed a white count of 13.5, hematocrit 44.7, and platelets 239,000. Chem profile was essentially normal. Glucose 166 however. Lipase was 11. Urinalysis; specific gravity of 1.066 and white red cells five per high-power field. ASSESSMENT: Her complex past history is now well known, and I explained her anatomical situation to her in detail. She likely has had an adhesion related to small bowel obstruction, which resolved with during the ct scan of the abdomen. We are all grateful for this improvement in her situation. The findings on the CT scan admittedly are somewhat confusing and radiologic interpretation would be highly inaccurate without certain knowledge of her previous interventions. In short, however, I believe her to be recovering from her bowel obstruction without any specific further measures, other than Electronically Signed By: SRIRAM RAMIREZ MD 08/13/17 1713 PATIENT NAME: OLAMIDE DUFFY HISTORY AND PHYSICAL DATE OF : 50 REPORT #: [id number] PHYSICIAN: SRIRAM RAMIREZ MD PCP: JOHN OWUSU DO REPORT IS CONFIDENTIAL AND NOT TO BE RELEASED WITHOUT AUTHORIZATION [address] [address] Signed hydration prior to her CT scan. On that basis, we will advance her diet and if tolerated, likely send home within the next 24 hours. MD DEQUAN Cason/GEONL /[id number] cc: MD Derrick Chen MD Andrew L Bower, MD Copies: CARLO PLASCENCIA MD, SHELDON MD BOWER, ANDREW L MD ~ Electronically Signed By: SRIRAM RAMIREZ MD 08/13/17 1713 PATIENT NAME: OLAMIDE DUFFY HISTORY AND PHYSICAL DATE OF : 50 REPORT #: [id number] PHYSICIAN: SRIRAM RAMIREZ MD PCP: JOHN OWUSU DO REPORT IS CONFIDENTIAL AND NOT TO BE RELEASED WITHOUT AUTHORIZATION
== END 2017-08-13 13:20 | disposition home or self-care (01) ==
LOC: ED 21:48 → MS 21:50 → ED 08-12 00:12 → MS 08-12 00:12
PROVIDERS: ADMIT Surgery
DX: K56.600 Partial intestinal obstruction, unspecified as to cause (principal); R53.81 Other malaise; Z85.048 Personal history of other malignant neoplasm of rectum, rectosigmoid junction, and anus; Z87.891 Personal history of nicotine dependence; Z93.2 Ileostomy status; Z90.49 Acquired absence of other specified parts of digestive tract
CPT/HCPCS: 36415; 74022; 74177; 80053; 81001; 83690; 85025; 93005; 93010; 96374; 96375; 99285; G0378; J2270; J2405; J2550; J7030; J7120; Q9967